=== PATIENT | male | born 1985 | race Hispanic/Latino ===

== ENCOUNTER → 2020-11-21 | Outpatient (CLI) | payer BC | LOC: US 07:45 | PROVIDERS: ATTEND Internal Medicine Gastroenterology | DX: R74.8 Abnormal levels of other serum enzymes (principal); K76.0 Fatty (change of) liver, not elsewhere classified; R03.0 Elevated blood-pressure reading, without diagnosis of hypertension | CPT/HCPCS: 76705 ==